=== PATIENT | female | born 1930 | race Caucasian/White ===

== ENCOUNTER → 2017-06-10 | Outpatient (CLI) | payer MEDICARE, OTHER ==
[2017-06-10 10:35] LABS: FREE T4 1.05 ng/dl (0.76-1.46); URIC ACID 4.5 mg/dL (2.6-6.0)
[2017-06-12 06:35] LABS: TOTAL PROTEIN, SERUM 6.7 g/dL (6.0-8.5)
[2017-06-13 16:08] LABS: IMMUNOFIXATION RESULT, SERUM Comment: (.)
[2017-06-13 17:09] LABS: ALBUMIN, URINE 25.4 % (.); ALPHA-1-GLOBULIN, URINE 8.5 % (.); ALPHA-2-GLOBULIN, URINE 14.3 % (.); BETA GLOBULIN, URINE 35.8 % (.); M-SPIKE, % Not Observed % (Not Observed)
[2017-06-13 17:09] LABS: A/G RATIO 1.3 (0.7-1.7); ALBUMIN 3.8 g/dL (2.9-4.4); ALPHA-1-GLOBULIN 0.2 g/dL (0.0-0.4); ALPHA-2-GLOBULIN 0.6 g/dL (0.4-1.0); BETA GLOBULIN 1.2 g/dL (0.7-1.3); GAMMA GLOBULIN 0.8 g/dL (0.4-1.8); GLOBULIN, TOTAL 2.9 g/dL (2.2-3.9); M-SPIKE Not Observed g/dL (Not Observed)
== END | disposition home or self-care (01) ==
LOC: LAB 09:34
PROVIDERS: Internal Medicine Rheumatology
DX: M19.041 Primary osteoarthritis, right hand (principal); E83.52 Hypercalcemia; R53.83 Other fatigue; Z86.39 Personal history of other endocrine, nutritional and metabolic disease

== ENCOUNTER → 2017-09-04 | Outpatient (CLI) | payer MEDICARE, OTHER ==
[2017-09-04 08:02] LABS: BUN 44 mg/dl (7-24); CHLORIDE 108 mmol/L (98-107); CREATININE 1.04 mg/dL (0.55-1.02); POTASSIUM 4.5 mmol/L (3.5-5.1); SODIUM 142 mmol/L (136-145)
== END | disposition home or self-care (01) ==
LOC: LAB 07:28
PROVIDERS: Internal Medicine Rheumatology
DX: M81.0 Age-related osteoporosis without current pathological fracture (principal)